=== PATIENT | female | born 1975 | race Caucasian/White ===

== ENCOUNTER 2016-12-02 18:48 | Emergency (ER) | payer OTHER ==
--- NOTE | 2016-12-02 19:28 | C.PDOC ---
History Of Present Illness A 41 year old female w/PMHx of lumbar radiculopathy, presents to ED with complaints of Right ankle burning pain, Right lower back pain exacerbation for the past few days. Patient reports that pain is radiating to right buttocks and right leg with a tingling sensation to the right foot. Patient admits, was on PT for past few months " and was feeling better". Otherwise, Patient denies any recent trauma or injury, fever, chills, CP, SOB, dyspnea, diaphoresis, abd. pain, N/V, saddle anesthesia, urinary or fecal incontinence, UTI sx, denies new weakness, sensory or vascular deficits to B/L LEs. Ambulate to ED for evaluation. Time Seen by Provider: 12/02/16 19:25 Chief Complaint (Nursing): Lower Extremity Problem/Injury History Per: Patient Onset/Duration Of Symptoms: Gradual Current Symptoms Are (Timing): Still Present Past Medical History Reviewed: Historical Data, Nursing Documentation, Vital Signs Vital Signs: Last Vital Signs Temp 97.9 F 12/02/16 20:48 Pulse 71 12/02/16 20:48 Resp 18 12/02/16 20:48 BP 107/71 12/02/16 20:48 Pulse Ox 96 12/02/16 20:48 - Medical History PMH: Back Problems (Chronic lower back pain for 3 yrs) Surgical History: Carotid Endarterectomy Family History: States: No Known Family Hx - Social History Hx Alcohol Use: No Hx Substance Use: No - Immunization History Hx Tetanus Toxoid Vaccination: No Hx Influenza Vaccination: No Hx Pneumococcal Vaccination: No Review Of Systems Except As Marked, All Systems Reviewed And Found Negative. Constitutional: Negative for: Fever, Chills, Sweats ENT: Negative for: Throat Pain Cardiovascular: Negative for: Chest Pain, Palpitations Respiratory: Negative for: Cough, Shortness of Breath Gastrointestinal: Negative for: Nausea, Vomiting, Abdominal Pain Genitourinary: Negative for: Dysuria, Frequency, Incontinence Musculoskeletal: Positive for: Back Pain. Negative for: Neck Pain Skin: Negative for: Rash, Bruising Neurological: Negative for: Weakness, Numbness Physical Exam - Physical Exam Appears: Well, No Acute Distress Skin: Normal Color, Warm, Dry, No Rash Eye(s): bilateral: PERRL Neck: Supple Gastrointestinal/Abdominal: Soft, No Tenderness, No Distention, No Guarding Back: No CVA Tenderness, No Vertebral Tenderness, Paraspinal Tenderness ( diffuse Right sided lumbar tenderness. NO midline tenderness, no palpable deformity.) Extremity: Normal ROM (B/L LEs), Tenderness (Rigt ankle mild tenderness over lateral malleolus with scant edema. No erythema, no deformity.), No Pedal Edema , No Calf Tenderness (B/L), No Deformity Neurological/Psych: Oriented x3, Normal Speech, Normal Motor, Normal Sensation, Normal Reflexes ED Course And Treatment - Laboratory Results Lab Interpretation: Normal (UA) O2 Sat by Pulse Oximetry: 98 - Other Rad Right ankle X-Ray: Interpreted by Me, Viewed By Me Interpretation: no acute fx or dislocation Progress Note: On re-evaluation, pt is afebrile, hemodynamiclay stable. Non- toxic. Ambulatory in ED with stable gait. Neck: Supple. Lungs: CTA B/L, BS equal B/L. Abd: benign. Neurologicaly intact. Right ankle xray (-) acute fx or dislocation. UA review - normal results. Pt has clinical findings c/w Right lumbar radiculopathy. GIven the fact, pt c/o Right ankle pain-was advised return to ED for Doppler US RLE r/o DVT. Pt advisedreturn to ED tomorrow for re-eavl. F/U with PMD, PM in 2-3 days for re-eval of chronic back pain. Disposition Counseled Patient/Family Regarding: Studies Performed, Diagnosis, Need For Followup, Rx Given - Disposition Referrals: [facility] [Outside] Disposition: HOME/ ROUTINE Disposition Time: 20:10 Condition: STABLE Additional Instructions: RETURN TO ED FOR DOPPLER US OF RIGHT LEG FOLLOW UP WITH PMD, PAIN MANAGEMENT IN 2-3 DAYS FOR RE-EVALUATION OF LOWER BACK TAKE MEDICATION PRESCRIBED FOR APIN NEED RETURN TO ED AT ANY TIME IF ANY WORSENING OR NEW CHANGES. Prescriptions: Cyclobenzaprine [Cyclobenzaprine HCl] 10 mg PO BID #10 tab traMADol [Ultram] 50 mg PO TID #7 tab Instructions: Lumbar Radiculopathy (ED), Arthralgia (ED) Forms: [employer] (Danish) - Clinical Impression Clinical Impression: Lumbar radiculopathy, Joint pain
[2016-12-02 19:56] LABS: RBC URINE 3 /hpf (0-3); URINE BACTERIA RARE (<OCC); URINE BILIRUBIN NEGATIVE (NEGATIVE); URINE BLOOD 2+ (NEGATIVE); URINE COLOR Yellow (YELLOW); URINE GLUCOSE (UA) NORMAL (Normal); URINE KETONE NEGATIVE (NEGATIVE); URINE LEUKOCYTE ESTERASE NEG Leu/uL (Negative); URINE PROTEIN NEGATIVE (NEGATIVE); URINE UROBILINOGEN NORMAL mg/dL (0.2-1.0); WBC URINE 2 /hpf (0-5)
[2016-12-02 20:50] VITALS: BP 107/71; PULSE 71; RESP 18; TEMP 97.9
[2016-12-02 22:07] VITALS: O2SAT 98
--- NOTE | 2016-12-03 09:52 | RAD ---
PROCEDURE: Right Ankle Radiographs. HISTORY: Pain. No history of recent/ related trauma provided COMPARISON: None FINDINGS: BONES: Plantar and Achilles Tendon insertion calcaneal spurs. No acute fracture. JOINTS: Normal. No osteoarthritis. Ankle mortise maintained. Talar dome intact SOFT TISSUES: Normal. OTHER FINDINGS: None. IMPRESSION: No acute findings related to/accounting for the clinical presentation. Concordant results with the preliminary interpretation rendered by the emergency department physician procedure.
== END 2016-12-02 20:50 | disposition home or self-care (01) ==
LOC: C.ER 18:48
DX: M54.16 Radiculopathy, lumbar region (principal); M25.571 Pain in right ankle and joints of right foot
CPT/HCPCS: 73610; 81001; 84703; 96372; 99284; J1885

== ENCOUNTER 2018-02-12 11:36 | Emergency (ER) | payer OTHER ==
[2018-02-12 11:44] VITALS: BP 114/84; PULSE 99; RESP 18; TEMP 99.1; O2SAT 99
[2018-02-12] MEDS ORDERED: Lidocaine 5% Patch TD STA (12:00)
--- NOTE | 2018-02-12 12:04 | C.PDOC ---
History Of Present Illness 42 year old female, with history of chronic low back pain, herniated disc, presents to ED for evaluation of left lower back pain radiating down to left buttock and left leg for the last 3 days. She admits to having similar symptoms in the past. Notes she took Ibuprofen without improvement. Pain is described as stiffness. Denies fall, trauma, nausea, vomiting, diarrhea, bowel or bladder incontinence/retention, fever, chills, numbness, paresthesia, focal weakness, sensory deficit, or any other associated symptoms at this time. Chief Complaint (Nursing): Lower Extremity Problem/Injury History Per: Patient History/Exam Limitations: no limitations Onset/Duration Of Symptoms: Days Current Symptoms Are (Timing): Still Present Recent travel outside of the [place]: No Additional History Per: Patient Past Medical History Reviewed: Historical Data, Nursing Documentation, Vital Signs Vital Signs: Last Vital Signs Temp 99.1 F 02/12/18 11:39 Pulse 99 H 02/12/18 11:39 Resp 18 02/12/18 11:39 BP 114/84 02/12/18 11:39 Pulse Ox 99 02/12/18 11:39 - Medical History PMH: Back Problems (Chronic lower back pain for 3 yrs) Surgical History: Denies: Carotid Endarterectomy (pt denies) Family History: States: Unknown Family Hx - Social History Hx Alcohol Use: No Hx Substance Use: No - Immunization History Hx Tetanus Toxoid Vaccination: No Hx Influenza Vaccination: No Hx Pneumococcal Vaccination: No Review Of Systems Except As Marked, All Systems Reviewed And Found Negative. Constitutional: Negative for: Fever, Chills Gastrointestinal: Negative for: Nausea, Vomiting, Abdominal Pain Genitourinary: Negative for: Dysuria, Frequency, Incontinence Musculoskeletal: Positive for: Back Pain Neurological: Negative for: Weakness, Numbness, Headache Physical Exam - Physical Exam Appears: Non-toxic, Other (uncomfortable, tearful) Skin: Normal Color, Warm, Dry Head: Atraumatic, Normacephalic Eye(s): bilateral: Normal Inspection Oral Mucosa: Moist Neck: Normal ROM, Supple Cardiovascular: Rhythm Regular, No Murmur Respiratory: Normal Breath Sounds, No Rales, No Rhonchi, No Wheezing Back: No CVA Tenderness, No Vertebral Tenderness, Paraspinal Tenderness (paralumbar) Extremity: Normal ROM, No Pedal Edema, Capillary Refill (less than 2 seconds), No Deformity Extremity: Bilateral: Atraumatic, Normal ROM Pulses: Left Dorsalis Pedis: Normal Neurological/Psych: Oriented x3, Normal Speech, Normal Motor, Normal Sensation ED Course And Treatment O2 Sat by Pulse Oximetry: 99 (on RA) Pulse Ox Interpretation: Normal Medical Decision Making Medical Decision Making: Impression: 42 year old female with left lower back radiating down to left leg. Plan: * Lidoderm * Valium * Toradol * Reassess On reassessment, patient is resting comfortably, with improvement of back pain. Patient remains afebrile, with no bony tenderness, extremity numbness or weakness, or abdominal pain. Patient is ambulatory in the emergency department with no signs of discomfort. Patient was advised to follow up with physician/clinic in 1-2 days Disposition Counseled Patient/Family Regarding: Diagnosis, Need For Followup, Rx Given - Disposition Referrals: Adrian Miranda MD [Staff Provider] - Disposition: HOME/ ROUTINE Disposition Time: 12:34 Condition: STABLE Additional Instructions: You can apply heat to area Take Tylenol 500mg for any pain Take Ibuprofen as needed for pain every 6-8 hours, with food to not upset s tomach Take Flexeril every 8 hours as needed for muscular pain and spasm, caution may cause drowsiness Prescriptions: Cyclobenzaprine [Cyclobenzaprine HCl] 10 mg PO TID #30 tab Gabapentin 300 mg PO DAILY #20 capsule Ibuprofen [Motrin] 600 mg PO Q8 #30 tab Instructions: Sciatica (DC) Forms: [employer] (Bengali) - POA Present On Arrival: None - Clinical Impression Clinical Impression: Sciatica - PA / PLATE MOUNTER / Resident Statement MD/DO has reviewed & agrees with the documentation as recorded. - Scribe Statement The provider has reviewed the documentation as recorded by the Carolineibvijay Bradford All medical record entries made by the Nancy were at my direction and personally dictated by me. I have reviewed the chart and agree that the record accurately reflects my personal performance of the history, physical exam, medical decision making, and the department course for this patient. I have also personally directed, reviewed, and agree with the discharge instructions and disposition.
[2018-02-12] MEDS ORDERED: Lidocaine 5% Patch TD ONE (12:16)
== END 2018-02-12 12:51 | disposition home or self-care (01) ==
LOC: C.ER 11:36
DX: M54.30 Sciatica, unspecified side (principal)
CPT/HCPCS: 96372; 99284; J1885

== ENCOUNTER 2018-04-04 08:49 | Emergency (ER) | payer OTHER ==
[2018-04-04 08:55] VITALS: RESP 18
--- NOTE | 2018-04-04 10:00 | C.PDOC ---
History Of Present Illness 42 year old male presents to the ED requesting medicine refill for left sciatica pain that starts on the left buttock and radiates down the left lateral thigh. Patient reports she ran out of her medication x1 month ago, admits to using Flexeril, Gabapentine, and Motrin 800mg for 3 days, with good results. Also states she did not know she could visit the clinic for medicine refill. Denies fever, numbness, tingling, and any other associated symptoms. Time Seen by Provider: 04/04/18 09:48 Chief Complaint (Nursing): Med Refill History Per: Patient History/Exam Limitations: no limitations Current Symptoms Are (Timing): Still Present Past Medical History Reviewed: Historical Data, Nursing Documentation, Vital Signs Vital Signs: Last Vital Signs Temp 98.5 F 04/04/18 08:51 Pulse 93 H 04/04/18 08:51 Resp 18 04/04/18 08:51 BP 123/80 04/04/18 08:51 Pulse Ox 96 04/04/18 08:51 - Medical History PMH: Back Problems (Chronic lower back pain for 3 yrs) Surgical History: Denies: Carotid Endarterectomy (pt denies) Family History: States: Unknown Family Hx - Social History Hx Alcohol Use: No Hx Substance Use: No - Immunization History Hx Tetanus Toxoid Vaccination: No Hx Influenza Vaccination: No Hx Pneumococcal Vaccination: No Review Of Systems Except As Marked, All Systems Reviewed And Found Negative. Constitutional: Positive for: Weight loss (recent. ). Negative for: Fever Musculoskeletal: Positive for: Other (left buttock radiating down the left lateral thigh.) Neurological: Negative for: Weakness, Numbness, Incoordination Physical Exam - Physical Exam Appears: Well, Non-toxic, No Acute Distress, Other (obese female ) Skin: Normal Color, Warm, Dry Head: Atraumatic, Normacephalic Eye(s): bilateral: PERRL Oral Mucosa: Moist Neck: Normal ROM, Supple Respiratory: Other (NARD.) Extremity: Normal ROM (x4), Tenderness (to the left piriformis area that radiates to the left lateral leg.), No Calf Tenderness, Capillary Refill, No Deformity, No Swelling, Other (normal standing and sitting intentional weight loss.) Neurological/Psych: Oriented x3, Normal Speech, Normal Cognition, Normal Motor, Normal Sensation, Normal Reflexes ED Course And Treatment O2 Sat by Pulse Oximetry: 96 (RA) Pulse Ox Interpretation: Normal Medical Decision Making Medical Decision Making: 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 Progress/Update: Patient stable for discharge home. Prescribed Motrin, Neurontin, and Cyclobenzaprine. Disposition Doctor Will See Patient In The: Office Counseled Patient/Family Regarding: Studies Performed, Diagnosis - Disposition Referrals: [facility] [Outside] [facility] [Outside] [facility] [Outside] Disposition: HOME/ ROUTINE Disposition Time: 10:03 Condition: GOOD Additional Instructions: ice packs 1/2 hour per hour, nothing hot NO HOT SHOWERS motrin 600 mg every 6 hours as needed Pepcid 20 mg @ night to prevent stomach irritation from the Motrin Gabapentin 300 mg 3x/day for decreasing nerve inflammation Flexeril 10 mg (muscle relaxer) for pain @ night follow-up in our outpatient [facility] for med refills Prescriptions: Cyclobenzaprine [Cyclobenzaprine HCl] 10 mg PO HS PRN #30 tab PRN Reason: spasm Gabapentin [Neurontin] 300 mg PO TID #90 cap Ibuprofen [Motrin] 600 mg PO Q6H PRN #20 tab PRN Reason: Pain, Moderate (4-7) Instructions: Sciatica (DC) Forms: [employer] (Libyan) - Clinical Impression Clinical Impression: Sciatica - Scribe Statement The provider has reviewed the documentation as recorded by the Scribe (Valencia Vuong) Provider Attestation: All medical record entries made by the Scribe were at my direction and personally dictated by me. I have reviewed the chart and agree that the record accurately reflects my personal performance of the history, physical exam, medical decision making, and the department course for this patient. I have also personally directed, reviewed, and agree with the discharge instructions and disposition.
[2018-04-04 10:24] VITALS: BP 102/72; PULSE 84; TEMP 97.9
[2018-04-04 11:17] VITALS: O2SAT 96
== END 2018-04-04 10:26 | disposition home or self-care (01) ==
LOC: C.ER 08:49
DX: M54.32 Sciatica, left side (principal)